=== PATIENT | male | born 1985 | race Two or more races ===

== ENCOUNTER 2023-09-27 01:09 | Inpatient (IN) | payer SELFPAY ==
[~2023-09-27] VITALS: Ht 180.3 cm; Wt 100.0 kg
[2023-09-27 01:10] VITALS: PULSE 91; RESP 22; O2SAT 95
[2023-09-27] MEDS ORDERED: SODIUM CHLORIDE 0.9% 1,000 ML IVB ONE (01:15)
[2023-09-27 01:45] LABS: Basophils # (auto) 0 10 ^3/uL (0-0.2); Basophils % (auto) 0.4 % (0.0-2.0); Eosinophils # (auto) 0.2 10 ^3/uL (0-0.8); Eosinophils % (auto) 2.3 % (0.0-7.0); Hemoglobin 15.7 g/dL (13.5-17.5); Lymphocytes % (auto) 23.9 % (10.0-50.0); Mean Corpuscular Hemoglobin 29.5 pg (28.0-32.0); Mean Corpuscular Hgb Conc. 33.4 g/dL (32.0-36.0); Mean Corpuscular Volume 88.3 fL (80.0-100.0); Monocytes # (auto) 0.4 10 ^3/uL (0-1.3); Monocytes % (auto) 4.6 % (0.0-12.0); Neutrophils # (auto) 5.6 10 ^3/uL (1.6-8.6); Neutrophils % (auto) 68.8 % (37.0-80.0); Nucleated Red Blood Cells % 0.1 %; Red Blood Cells 5.32 10^6/uL (4.5-5.90); Red Cell Distribution Width 13.9 % (11.8-14.3); White Blood Cell 8.2 10^3/uL (4.4-10.8)
[2023-09-27 01:58] LABS: Alanine Aminotransferase 43 U/L (7-40); Albumin 4.4 g/dL (3.2-4.8); Alkaline Phosphatase 88 U/L (46-116); Anion Gap 14 (5-15); Aspartate Aminotransferase 21 U/L (13-40); BUN/Creatinine Ratio 11.8 (10.0-20.0); Blood Alcohol 3.6 mg/dL (<10); Blood Urea Nitrogen 12 mg/dL (9-23); Calcium 8.3 mg/dL (8.7-10.4); Carbon Dioxide 18 mmol/L (20-30); Chloride 104 mmol/L (98-107); Glucose 234 mg/dL (74-106); Potassium 2.9 mmol/L (3.5-5.1); Sodium 136 mmol/L (136-145)
[2023-09-27 01:59] LABS: Bilirubin, Total 0.4 mg/dL (0.2-1.0); Total Protein 7.6 g/dL (5.7-8.2)
[2023-09-27 02:00] LABS: Acetaminophen < 2.0 UG/ML (10.0-20.0)
[2023-09-27 02:31] LABS: Amphetamine Screen, Urine Pos (NEGATIVE); Barbiturate Scree,Urine Neg (NEGATIVE); Benzodiazephine Screen, Urine Neg (NEGATIVE); Cannabinoid Screen, Urine Neg (NEGATIVE); Cocaine Screen, Urine Neg (NEGATIVE); Opiate Scree,Urine Neg (NEGATIVE); Phencyclidine Screen, Urine Neg (NEGATIVE)
[2023-09-27 02:33] LABS: Salicylate < 3.0 mg/dL (2.8-20.0)
[2023-09-27 03:08] LABS: Base Excess -8.3 mmol/L (-2.0-2.0)
[2023-09-27 07:00] VITALS: TEMP 97.6
[2023-09-27 07:47] LABS: Base Excess -0.6 mmol/L (-2.0-2.0)
[2023-09-27 09:00] VITALS: BP 112/67; PULSE 84; RESP 17; O2SAT 100
[2023-09-27] MEDS ORDERED: POTASSIUM EFFERVESENT TAB 25 MEQ PO ONE (09:00)
[2023-09-27] MEDS ORDERED: ACETAMINOPHEN 325 MG TAB PO PRN (09:00)
[2023-09-27] MEDS ORDERED: SODIUM CHLORIDE 0.9% 1,000 ML IV SCH (09:00)
[2023-09-27] MEDS ORDERED: POTASSIUM CHLORIDE 20 MEQ, LIDOCAINE 1% (LOCAL ANESTH.) 2 ML in SODIUM CHL 0.9% 100 ML IV ONE (09:00)
[2023-09-27] MEDS ORDERED: ENOXAPARIN SOD 40 MG/0.4 ML SYRINGE SC SCH (10:00)
[2023-09-27 11:07] LABS: Magnesium 2.2 mg/dL (1.6-2.6)
== END 2023-09-27 10:46 | disposition left against medical advice (07) | DRG 93 ==
LOC: ER 01:09 → EDBD 01:09 → OVERFLOW 08:59
PROVIDERS: ADMIT Nurse Practitioner Family; ATTEND Nurse Practitioner Family
DX: G92.9 Unspecified toxic encephalopathy (principal); E66.01 Morbid (severe) obesity due to excess calories; F15.10 Other stimulant abuse, uncomplicated; E87.6 Hypokalemia; R73.9 Hyperglycemia, unspecified; T58.11XA Toxic effect of carbon monoxide from utility gas, accidental (unintentional), initial encounter; Z71.3 Dietary counseling and surveillance; Y92.89 Other specified places as the place of occurrence of the external cause; F19.10 Other psychoactive substance abuse, uncomplicated
CPT/HCPCS: 36415; 36600; 70450; 71045; 71250; 72125; 74176; 80053; 80061; 80307; 80320; 80329; 82805; 83036; 83735; 84443; 85025; 93005; 96360; 99291; G0378; J2001

== ENCOUNTER 2025-06-03 18:14 | Emergency (ER) | payer MEDICAID, OTHER ==
[~2025-06-03] VITALS: Ht 180.3 cm; Wt 123.0 kg
[2025-06-03 18:15] VITALS: TEMP 98.2
[2025-06-03] MEDS ORDERED: CIPR500T4 PO (19:12)
--- NOTE | 2025-06-03 19:12 | ED.PDOC ---
History of Present Illness(SKN HPI Comments 39-year-old male presents to ER with complaints of puncture wound to left foot x2 days. Patient reports that a lois nail went through his left boot that he was wearing and punctured his left foot 2 days ago. Denies any pain and denies use of medications for current symptoms. Patient presents to ER ambulatory on arrival, with steady gait, in no distress and is unsure when his last tetanus shot was. Denies fever, body aches, chills, numbness/tingling, skin drainage, foreign body sensation or any further symptoms/complaints Chief Complaint: Puncture Wound Time Seen by MD: 18:20 Primary Care Provider: UNKNOWN History of Present Illness: Nurses Notes, Medications, Allergies Allergies: Coded Allergies: NO KNOWN ALLERGIES (Unverified , 09/27/23) Home Meds Active Scripts Ciprofloxacin Hcl (Ciprofloxacin Hcl) 500 Mg Tab, 1 TAB PO BID for 7 Days, #14 TAB 0 Refills Prov:LUZ MARINA HUGHES 06/03/25 Information Source: Patient Mode of Arrival: Ambulatory Tetanus: Unknown Past Medical History Past Medical History (Other): Left hand trauma Surgical History (Other): Left hand amputation Exploratory abdominal surgery Family History Family History: Unknown Social History Smoker: Non-Smoker Alcohol: Denies ETOH Use Drugs: Marijuana Lives In: Home Constitutional: denies: chills, diaphoresis, fatigue, fever, malaise, sweats, weakness, others EENTM: denies: blurred vision, double vision, ear bleeding, ear discharge, ear drainage, ear pain, ear ringing, eye pain, eye redness, hearing loss, mouth pain, mouth swelling, nasal discharge, nose bleeding, nose congestion, nose pain, photophobia, tearing, throat pain, throat swelling, voice changes, others Respiratory: denies: cough, hemoptysis, orthopnea, SOB at rest, shortness of breath, SOB with excertion, stridor, wheezing, others Cardiovascular: denies: chest pain, dizzy spells, diaphoresis, Dyspnea on exertion, edema, irregular heart beat, left arm pain, lightheadedness, palpitations, PND, syncope, others Gastrointestinal: denies: abdomen distended, abdominal pain, blood streaked bowels, constipated, diarrhea, dysphagia, difficulty swallowing, hematemesis, melena, nausea, poor appetite, poor fluid intake, rectal bleeding, rectal pain, vomiting, others Genitourinary: denies: burning, dysuria, flank pain, frequency, hematuria, incontinence, penile discharge, penile sore, pain, testicle pain, testicle swelling, urgency, others Neurological: denies: dizziness, fainting, headache, left sided numbness, left sided weakness, numbness, paresthesia, pre-existing deficit, right sided numbness, right sided weakness, seizure, speech problems, tingling, tremors, weakness, others Musculoskeletal: denies: back pain, gout, joint pain, joint swelling, muscle pain, muscle stiffness, neck pain, others Integumetry: reports: others (As stated in HPI) Allergic/Immunocompromised: denies: Difficulty Healing, Frequent Infections, Hives, Itching, others Hematologic/Lymphatic: denies: anemia, blood clots, easy bleeding, easy bruising, swollen glands, others Endocrine: denies: excessive hunger, excessive sweating, excessive thirst, excessive urination, flushing, intolerance to cold, intolerance to heat, unexplained weight gain, unexplained weight loss, others Psychiatric: denies: anxiety, bipolar disorder, depression, hopeless, panic disorder, schizophrenia, sleepless, suicidal, others Physical Exam General Appearance: No Apparent Distress HEENT: PERRL/EOMI Neck: Full Range of Motion, Non-Tender, Normal Respiratory: Chest Non-Tender, Lungs Clear, No Accessory Muscle Use, No Respiratory Distress, Normal Breath Sounds Cardiovascular: No Murmur, No Gallop, Regular Rate/Rhythm Breast Exam: Deferred Gastrointestinal: NOT DONE Genitalia: Deferred Pelvic: Deferred Rectal: Deferred Extremities: Normal capillary refill, Normal range of motion Neurologic: Alert, No Motor Deficits, Normal Affect, Normal Mood, No Sensory Deficits Cerebellar Function: Normal Reflexes: Normal Skin: Dry, Warm, Other (Healing .5 cm puncture denisse with minimal erythema surrounding wound edges centralized to soft tissues on plantar surface of left foot. No bony tenderness appreciated. No foreign body noted. Pulses noted. Gait intact without abnormality) Peripheral Pulses: 2+ dorsalis pedis (R), 2+ dorsalis pedis (L), 2+ Radial (R), 2+ Radial (L), 2+ Brachial (R), 2+ Brachial (L) Lymphatic: No Adenopathy Was a procedure done? Was a procedure done?: No Sedation Sedation?: No Differential Diagnosis (INTG) Differential Diagnosis: Abrasion Differential Diagnosis: Cellulitis, Retained Foreign Body, Other (fracture) X-Ray, Labs, Meds, VS Vital Signs Date Time Temp Pulse Resp B/P (MAP) Pulse Ox O2 Delivery O2 Flow Rate FiO2 06/03/25 18:15 98.2 90 18 126/82 96 98.2 Rocephin 1 g IM ordered Tdap 0.5 mL IM ordered Advised to follow up with PCP in 1-2 days Patient verbalized understanding and agreeable with current plan of care Advised to return to ER immediately if symptoms worsen Time of 1ST Reevaluation: 18:54 Reevaluation 1ST: N/A Patient Education/Counseling: Diagnosis, Treatment, Prognosis, Need For Follow Up Family Education/Counseling: No Family Present SEPSIS Sepsis Screen Date sepsis recognized/suspect: Jun 03, 2025 Time Sepsis recognized/suspect: 1814 Recent Procedure: No On Antibiotic Therapy: No Respiratory Rate >20: No Heart Rate >90: No Temp<36 C (96.8 F) or >38.3 C: No SBP <90 or MAP <65 mmHG: No New Acute Mental Status Change: No Is the patient on CPAP, BIPAP,: No Physician Orders Tetanus [id number] (Boostrix (06/03/25 19:15) Ceftriaxone Sodium (Rocephin) (06/03/25 19:15) Vital Signs Date Time Temp Pulse Resp B/P (MAP) Pulse Ox O2 Delivery O2 Flow Rate FiO2 06/03/25 18:15 98.2 90 18 126/82 96 98.2 Departure 1 Departure Time of Disposition: 19:10 Impression: Primary Impression: Puncture wound of foot, left Qualified Codes: S91.332A - Puncture wound without foreign body, left foot, initial encounter Disposition: HOME / SELF CARE / HOMELESS Condition: Stable e-Prescriptions Ciprofloxacin Hcl (Ciprofloxacin Hcl) 500 Mg Tab 1 TAB PO BID for 7 Days, #14 TAB 0 Refills Prov: LUZ MARINA HUGHES 06/03/25 Discharged With: Self Critical Care Note Critical Care Time?: No Stability Stability form required: No Heart Score Heart Score: Heart Score Response (Comments) Value History N/A 0 EKG N/A 0 Age N/A 0 Risk Factors N/A 0 Troponin N/A 0 Total 0 LUZ MARINA HUGHES Jun 03, 2025 19:12
[2025-06-03 19:13] VITALS: BP 119/75; PULSE 80; RESP 18; O2SAT 94
[2025-06-03] MEDS: cefTRIAXone SOD 1,000 MG VL IM ONE (19:19)
[2025-06-03] MEDS: TETANUS-DIPTH-ACEL PERTUSSIS 0.5ML SYR Tdap IM ONE (19:20)
== END 2025-06-03 19:28 | disposition home or self-care (01) ==
LOC: ER 18:14
DX: S91.332A Puncture wound without foreign body, left foot, initial encounter (principal); F12.90 Cannabis use, unspecified, uncomplicated; Z87.898 Personal history of other specified conditions; Z79.899 Other long term (current) drug therapy; X58.XXXA Exposure to other specified factors, initial encounter; Y93.89 Activity, other specified; Y92.89 Other specified places as the place of occurrence of the external cause; Y99.8 Other external cause status
CPT/HCPCS: 90471; 90715; 96372; 99284; J0696